=== PATIENT | male | born 1970 | race Caucasian/White ===

== ENCOUNTER 2017-08-28 01:34 | Emergency (ER) | payer OTHER ==
[~2017-08-28] VITALS: Ht 185.4 cm; Wt 104.3 kg
[~2017-08-28 01:34] MED LIST: ALLO300 PO; ATEN50 PO; Betamethasone D60 ML TOP; Clobetasol Prop50 ML; ERYT333ERA PO; ETAN50I; HYDACE5 PO; HYDGUAL120 PO; HYDMOR2 PO; Norco 5-325 Ta1 EACH PO; OXYACE7.5T PO; Percocet 5-3251 EACH PO; Prednisone20 MG PO; Prilosec Otc20 MG PO
[2017-08-28] MEDS ORDERED: Percocet 5-3251 EACH PO (04:29)
== END 2017-08-28 04:48 | disposition home or self-care (01) ==
LOC: ER 01:34
DX: S82.851A Displaced trimalleolar fracture of right lower leg, initial encounter for closed fracture (principal); W22.8XXA Striking against or struck by other objects, initial encounter; Z88.1 Allergy status to other antibiotic agents; Z79.899 Other long term (current) drug therapy; Z79.891 Long term (current) use of opiate analgesic; Z79.52 Long term (current) use of systemic steroids
CPT/HCPCS: 27810; 36415; 73610; 96374; 96375; 96376; 99152; 99153; 99284; J1170; J2405; J7030

== ENCOUNTER 2017-09-19 13:06 | Day surgery (SDC) | payer OTHER ==
[2017-09-19] MEDS ORDERED: METO50 PO (13:41)
[2017-09-19] MEDS ORDERED: TRAM50 PO (13:41)
== END 2017-09-19 23:10 | disposition home or self-care (01) ==
LOC: ORSCMMR 13:06
PROVIDERS: Orthopaedic Surgery
PROC: 0QSJ04Z Reposition Right Fibula with Internal Fixation Device, Open Approach (ICD-10-PCS; principal; 2017-09-19 16:30)
DX: S82.841A Displaced bimalleolar fracture of right lower leg, initial encounter for closed fracture (principal); I10 Essential (primary) hypertension; L40.50 Arthropathic psoriasis, unspecified; Z79.899 Other long term (current) drug therapy; F17.220 Nicotine dependence, chewing tobacco, uncomplicated
CPT/HCPCS: 93005; 93010; C1713; J0171; J0690; J1100; J1885; J2250; J2405; J3010; J7120

== ENCOUNTER 2018-09-27 00:08 | Emergency (ER) | payer OTHER ==
[~2018-09-27] VITALS: Ht 185.4 cm; Wt 104.3 kg
[~2018-09-27 00:08] MED LIST changes: +METO50 PO; +TRAM50 PO
[2018-09-27] MEDS ORDERED: Prednisone20 MG PO (01:27)
== END 2018-09-27 01:47 | disposition home or self-care (01) ==
LOC: ER 00:08
DX: L40.9 Psoriasis, unspecified (principal); Z88.1 Allergy status to other antibiotic agents; Z88.8 Allergy status to other drugs, medicaments and biological substances; Z79.899 Other long term (current) drug therapy
CPT/HCPCS: 96372; 99282-25; J1885